=== PATIENT | female | born 1940 | race Caucasian/White ===

== ENCOUNTER 2018-02-23 12:34 | Emergency (ER) | payer OTHER ==
[2018-02-23 12:37] VITALS: BP 164/80; PULSE 95; RESP 16; TEMP 98.1; O2SAT 98
[2018-02-23] MEDS ORDERED: HYDR25TA5 PO (13:05)
[2018-02-23] MEDS ORDERED: MSIR15 PO (13:05)
[2018-02-23] MEDS ORDERED: VERA120C3 PO (13:05)
[2018-02-23] MEDS ORDERED: ALLO100T PO (13:05)
[2018-02-23] MEDS ORDERED: ROPI1TAB72 PO (13:05)
[2018-02-23] MEDS ORDERED: OMEP20TA93 PO (13:05)
--- NOTE | 2018-02-23 13:45 | RADRPT ---
EXAM DATE: 02/23/2018 1:26 PM EDT AGE/SEX: 77 years / Female INDICATIONS: Fell one month ago complains of Right Femur pain CLINICAL DATA: This is the patient's initial encounter. Patient reports that signs and symptoms have been present for 1 month and indicates a pain score of 10/10. MEDICAL/SURGICAL HISTORY: None. None. COMPARISON: No prior exams available for comparison. FINDINGS: Bony structures are intact and in normal alignment. Osseous density is normal. Soft tissues are unre markable. No radiopaque foreign bodies seen. 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 CONCLUSION: No acute abnormality. Electronically signed by: Axel Morrison MD 02/23/2018 1:44 PM EDT
--- NOTE | 2018-02-23 13:55 | PD ---
HPI Chief Complaint: Pain: Acute or Chronic Time Seen by Provider: 12:59 Travel History International Travel<30 days: No Contact w/Intl Traveler<30days: No Traveled to known affect area: No History of Present Illness HPI 77-year-old female here with right thigh pain after a fall 1 month ago. She reports she fell from a standing position onto the right thigh approximately a month ago. She has had pain since the fall. Over the last 24 hours the pain has intensified and she now has difficulty weightbearing. Symptom severity is moderate. Aggravated by palpation of the thigh and weightbearing. Slightly with alleviated with rest. Described as sharp pain localized to the lateral aspect of the thigh which radiates up into the hip and down to the knee. Patient is currently on morphine for her chronic back pain and reports minimal relief with this. She denies altered sensation of this extremity. No change in coloration. No swelling of the extremity. She has no history of prior DVT. No history of peripheral vascular disease. She is here visiting from [place]. [facility] Past Medical History Narrative Medical Significant for chronic back pain, hypertension, dyslipidemia, insomnia GERD: Yes Gout: Yes Hypertension: Yes Neurologic: Yes (RLS ) Tetanus Vaccination: < 5 Years Influenza Vaccination: Yes ?: Not Past Surgical History Appendectomy: Yes Hysterectomy: Yes Tonsillectomy: Yes Social History Alcohol Use: Yes (Occ.) Tobacco Use: No Substance Use: No Allergies-Medications (Allergen,Severity, Reaction): Coded Allergies: cephalexin (Verified Allergy, Intermediate, Rash, 02/23/18) clindamycin (Verified Allergy, Intermediate, Rash, 02/23/18) suvorexant (Verified Adverse Reaction, Severe, 02/23/18) HALLUCINATIONS fentanyl (Verified Adverse Reaction, Intermediate, 02/23/18) 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 Reported Meds & Prescriptions Reported Meds & Active Scripts Active Reported Morphine IR (Morphine Sulfate) 15 Mg Tab 15 Mg PO QID PRN Requip (Ropinirole) 1 Mg Tab 1 Mg PO HS Omeprazole 20 Mg Tab 20 Mg PO DAILY Verapamil SR (Verapamil HCl) 120 Mg Cap 120 Mg PO DAILY Hydrochlorothiazide 25 Mg Tab 25 Mg PO DAILY Allopurinol 100 Mg Tab 100 Mg PO DAILY Review of Systems Except as stated in HPI: all other systems reviewed are Neg General / Constitutional: No: Fever Eyes: No: Visual changes HENT: No: Headaches Cardiovascular: No: Chest Pain or Discomfort Respiratory: No: Shortness of Breath Gastrointestinal: No: Abdominal Pain Genitourinary: No: Dysuria Physical Exam Narrative GENERAL: Alert and well-appearing 77-year-old female. SKIN: Warm and dry. HEAD: Normocephalic. Atraumatic EYES: No injection or drainage. NECK: Supple CARDIOVASCULAR: Regular rate and rhythm without murmurs, gallops, or rubs. RESPIRATORY: Breath sounds equal bilaterally. No accessory muscle use. GASTROINTESTINAL: Abdomen soft, non-tender, nondistended. MUSCULOSKELETAL: No cyanosis, or edema. RLE: +TTP mid-proximal lateral aspect of the femur. No obvious deformity. No ecchymosis. No swelling of the extremity. The extremity is warm. Pedal pulses are faintly palpable but equal bilaterally. Both are dopplerable. Normal strength and sensation in the lower extremities. BACK: Nontender without obvious deformity. Old surgical scar to the lumbar spine without evidence of infection. No CVA tenderness. Data Data Last Documented VS Vital Signs Date Time Temp Pulse Resp B/P (MAP) Pulse Ox O2 Delivery O2 Flow Rate FiO2 02/23/18 12:37 98.1 95 16 164/80 (108) 98 Orders Orders Femur (Ap & Lat/2vws) (02/23/18 ) Morphine Inj (Morphine Inj) (02/23/18 14:15) MDM Medical Decision Making Medical Screen Exam Complete: Yes Emergency Medical Condition: Yes Differential Diagnosis Femur fracture, contusion, DVT unlikely, arterial occlusion unlikely Narrative Course 77-year-old female with right hip and thigh pain after fall 1 month ago. The pain is localized to the lateral aspect of the hip and thigh. Reproducible to palpation. The extremity is neurovascularly intact. Pulses present. X-ray is negative for fracture. Patient was given a shot of morphine and reports symptom improvement. she is stable and ready for discharge. Diagnosis Primary Impression: Leg pain Qualified Codes: M79.604 - Pain in right leg Referrals: Pain Management Additional Instructions: Take your morphine as directed. Follow-up with your pain management doctor in [place]. Return if you develop new or worsening symptoms. Disposition: 01 DISCHARGE HOME Condition: Stable Cynthia Myers Feb 23, 2018 13:55
[2018-02-23] MEDS ORDERED: MORPHINE SULFATE 2 MG/ML SYRINGE IM ONE (14:15)
== END 2018-02-23 14:20 | disposition home or self-care (01) ==
LOC: PHEFT 12:34
DX: M79.651 Pain in right thigh (principal); K21.9 Gastro-esophageal reflux disease without esophagitis; M10.9 Gout, unspecified; I10 Essential (primary) hypertension; G25.81 Restless legs syndrome; Z79.899 Other long term (current) drug therapy; Z88.8 Allergy status to other drugs, medicaments and biological substances
CPT/HCPCS: 73552; 96372; 99283; J2270